=== PATIENT | male | born 1945 | race Caucasian/White ===

== ENCOUNTER 2017-01-20 08:55 | Inpatient (IN) | payer MEDICARE, OTHER ==
[~2017-01-20] VITALS: Ht 177.8 cm; Wt 81.9 kg
[~2017-01-20 08:55] MED LIST: ACET325T33 PO; AMLO-147 PO; ASPI-664 PO; ATOR20TA38 PO; BENA20TA48 PO; CLON-379 PO; DICY10CA60 PO; DOCU-144 PO; FAMO-96 PO; FENT1PAT8 TD; FINA5TAB PO; GABA300C16 PO; GLUC1VIA7 IM; HYDR-3011 PO; HYDR-3498 PO; IBUP-1542 PO; INSU100C SC; ISOS60TA PO; LACT20SO2 PO; LEVEM SC; LEVO125T75 PO; LIPA1CAP17 PO; LORA-408 PO; LUBI24CA7 PO; METF500T4 PO; METH500T8 PO; MULT1TAB59 PO; NIT4 SL; PANT40TA4 PO; POLY17PO PO; RANO500T2 PO; TAMS0.4C2 PO; UDMYL PO; ZOLP5TAB PO
--- NOTE | 2017-01-20 09:14 | RADRPT ---
PROCEDURE: CT Brain without contrast. CLINICAL INDICATION: Code stroke, left facial droop TECHNIQUE: CT of the brain was performed on a multidetector scanner without IV contrast. One or m ore of the following dose reduction techniques were used: automated exposure control, adjustment of the mA and/or kV according to patient size, use of iterative reconstruction technique. CTDI = 42.3 mGy. DLP = 720.23 mGy-cm. COMPARISON: CT, 11/27/2013 FINDINGS: Moderate diffuse cerebral atrophy is present. There is no evidence of intracranial hemorrhage, mass effect or midline shift. No abnormal intra-axial or extra-axial fluid collections are seen. The d ensity of the brain is normal and the polk/white matter differentiation is well preserved. Mild pat melinda diffuse deep white matter microangiopathic ischemic change is seen. The osseous structures and visualized paranasal sinuses are unremarkable. Vascular calcifications are identified. IMPRESSION: 1. Mild to moderate chronic cerebral ischemic changes and atrophy. 2. No evidence of acute intracranial process. A call report was made to Amrik Ferro on 01/20/2017 9:12:47 AM. RPTAT: QQ .Martin Antonio MD, MD Date Time Electronically viewed and signed by .Martin Antonio MD, on 01/20/2017 09:14 .R/
[2017-01-20] MEDS ORDERED: ASPIRIN 300 MG SUPP PR ONE (09:30)
[2017-01-20 09:44] LABS: BASOPHIL # 0.1 10^3/ul (0.0-0.1); BASOPHILS % 0.6 % (0.0-2.0); EOSINOPHILS # 0.1 10^3/ul (0.0-0.5); EOSINOPHILS % 1.3 % (0.0-7.0); HEMATOCRIT 42.9 % (42.0-52.0); LYMPHOCYTES # 1.4 10^3/ul (0.8-2.9); LYMPHOCYTES % 16.2 % (15.0-51.0); MEAN CORPUSCULAR HEMOGLOBIN 30.4 pg (29.0-33.0); MEAN CORPUSCULAR HGB CONC 32.6 g/dl (32.0-37.0); MEAN CORPUSCULAR VOLUME 93.3 fl (82.0-101.0); MEAN PLATELET VOLUME 9.9 fl (7.4-10.4); MONOCYTE # 0.7 10^3/ul (0.3-0.9); NEUTROPHILS % 73.7 % (39.0-77.0); PLATELET COUNT 286 10^3/UL (140-415); RED CELL DISTRIBUTION WIDTH 13.2 % (11.5-14.5); WHITE BLOOD COUNT 8.9 10^3/ul (4.8-10.8)
--- NOTE | 2017-01-20 09:52 | RADRPT ---
PROCEDURE: Chest x-ray CLINICAL INDICATION: Stroke TECHNIQUE: Chest single view COMPARISON: 12/02/2013 FINDINGS: There post thoracotomy changes. Stable mild cardiomegaly and moderate atherosclerotic aortic calcif ication is seen. Pulmonary vessels are normal in caliber. There is low lung volumes and elevated r ight hemidiaphragm. Associated lower lobe atelectasis is seen. The overall appearance is unchanged . Costophrenic angles are sharp. IMPRESSION: 1. Stable cardiomegaly and atherosclerotic aortic calcification. 2. Persistent elevation right hemidiaphragm with bibasilar atelectasis. 3. Status post CABG RPTAT: HH .Escobar Christian MD, Date Time Electronically viewed and signed by .Escobar Christian MD, on 01/20/2017 09:52 .W/
[2017-01-20] MEDS ORDERED: SODIUM CHLORIDE 0.9% 1L BAG IV* STA (09:56)
[2017-01-20 09:57] LABS: INR 0.95; PROTIME 12.7 Sec (12.2-14.2)
[2017-01-20 09:58] LABS: PARTIAL THROMBOPLASTIN TIME 25.5 Sec (25.0-35.0)
[2017-01-20] MEDS ORDERED: SOD CHLORIDE 0.9% 100 ML ONE (09:58)
[2017-01-20] MEDS ORDERED: IODIXANOL LOCM 100 ML BTL ONE (09:58)
[2017-01-20 10:00] LABS: CALCIUM 9.2 mg/dl (8.4-10.2); CREATININE 1.89 mg/dl (0.61-1.24); POTASSIUM 4.4 mmol/L (3.5-5.1)
[2017-01-20 10:12] LABS: TROPONIN-I 0.017 ng/ml (0.00-0.12)
[2017-01-20] MEDS ORDERED: HALOPERIDOL 5 MG INJ IM ONE ×2 (10:30→17:00)
[2017-01-20 10:32] VITALS: TEMP 99.1
[2017-01-20 11:15] LABS: ADD UMIC YES; UR ASCORBIC ACID NEGATIVE (NEGATIVE); UR BACTERIA FEW /HPF (NONE SEEN); UR BILIRUBIN (Dip) NEGATIVE (NEGATIVE); UR BLOOD (Dip) 2+ mg/dL (NEGATIVE); UR CLARITY TURBID (CLEAR); UR COLOR AMBER (YELLOW); UR GLUCOSE (Dip) NEGATIVE (NEGATIVE); UR KETONES (Dip) NEGATIVE (NEGATIVE); UR LEUKOCYTE ESTERASE (Dip) 3+ Leu/ul (NEGATIVE); UR NITRITE (Dip) NEGATIVE (NEGATIVE); UR RBC 64 /HPF (0-5); UR SPECIFIC GRAVITY (Dip) 1.026 (1.003-1.030); UR SQUAMOUS EPITHELIAL CELL FEW /HPF (FEW); UR TOTAL PROTEIN (Dip) 2+ mg/dl (NEGATIVE); UR UROBILINOGEN (Dip) NEGATIVE (NEGATIVE); UR WBC CLUMPS MANY /HPF (NONE SEEN)
--- NOTE | 2017-01-20 11:19 | RADRPT ---
PROCEDURE: CTA head and neck CLINICAL INDICATION: stroke TECHNIQUE: The study was performed utilizing a multidetector CT scanner. Direct thin section emery raquel 0.625 mm axial sections were obtained through the head and neck after the uneventful administrat ion of 100 ml of the Visipaque 320 nonionic intravenous contrast material. Coronal and sagittal as well as maximal intensity projection reformations were obtained. 3-D images were made. The images w ere reviewed on a PACS workstation. The total 36.74 mGy and the 715.19 mGy-cm. One or more of the fo llowing dose reduction techniques were utilized: Automated exposure control, adjustment of the mA a nd/or kV according to patient size, use of iterative reconstruction technique. COMPARISON: No prior studies are available for comparison. FINDINGS: CTA NECK: Aortic arch: The aortic arch is normal in caliber. Atherosclerotic calcification of the aortic arch. Normal appea page of the origin of the great vessels. Common carotid arteries: Marked tortuosity of the proximal common carotid arteries bilaterally. Minimal soft and calcified at herosclerotic plaque at the distal common carotid artery without significant focal narrowing, plaque ulceration or stenosis. Internal carotid arteries: TRINH/ECA: Normal appearance of the internal carotid artery bulb. Minimal circumferential atheromatous soft and calcified plaque at the origin of the external carotid artery and internal carotid artery bulb. The distal internal carotid artery is patent and normal in caliber. No evidence of hemodynamically sig nificant stenosis. External carotid artery and its branches are normal patent and normal in caliber LICA/ECA : Normal appearance of the internal carotid artery bulb. Minimal soft and calcified atheromatous plaqu e at the bifurcation and proximal internal carotid artery bulb without plaque ulceration or signific ant focal narrowing. The distal internal carotid artery is patent and normal in caliber. No eviden ce of hemodynamically significant stenosis. External carotid artery and its branches are normal pat ent and normal in caliber Vertebral arteries: The vertebral arteries are patent and normal in caliber. Dominant right vertebral artery. CTA BRAIN: Circumferential atherosclerotic calcified plaque involving the cavernous and supraclinoid carotid ar teries bilaterally resulting in approximately 50% stenosis bilaterally. The vessels of the anterior posterior circulation are patent and demonstrate normal course and calib er without irregularity, focal stenosis or occlusion. The anterior posterior communicating arteries are intact. The basilar artery is patent and normal in caliber. The posterior communicating arteries are patent and normal in caliber. The vertebral arteries demonstrate dominant right vertebral artery are otherwise normal in course an d caliber. No aneurysm or vascular malformation is identified. The dural venous sinuses , cortical, and intrace rebral veins are patent and normal in caliber. IMPRESSION: 1. Minimal soft and calcified atheromatous plaque at the level of the internal carotid artery bulb and bifurcation bilaterally as well as distal left common carotid artery without hemodynamically sig nificant stenosis or plaque ulceration. 2. Tortuosity of the proximal common carotid arteries bilaterally. 3. Atherosclerotic calcification resulting approximately 50% stenosis of the cavernous carotid and supraclinoid intracranial carotid arteries bilaterally. 4. The remaining intracranial vasculature is unremarkable. 5. Dominant right vertebral artery. Results were discussed with Amrik Finney 01/20/2017 11:15:17 AM . RPTAT:AAJJ Physician Mode Date Time Electronically viewed and signed by Physician Mode on 01/20/2017 11:19 CLAUDIA/
[2017-01-20 11:20] LABS: BARBITURATES Negative (NEGATIVE); BENZODIAZEPINES Negative (NEGATIVE); CANNABINOIDS Negative (NEGATIVE); COCAINE Negative (NEGATIVE); OPIATES Positive (NEGATIVE)
[2017-01-20] MEDS ORDERED: OLANZAPINE (ODT) 5 MG TAB PO STA (11:26)
--- NOTE | 2017-01-20 12:18 | PSY ---
Date/Time of Note Date/Time of Note DATE: 01/20/17 TIME: 12:13 Psychiatric Subjective Eval Consent Pt consented to telemedicine: Yes Subjective Evaluation Patient location: emergency Chief Complaint: Pt BIb RA for pt went altered while walking while holding a wheel chair History of present illness 71 yo anand ojeda multiple medical problems BIB EMS from [facility] due to a AMS on Code Stroke. In ED he told RN after he woke up he has bad thoughts and has thoughts aout stabbing himself. I was not able to evalaute the pt because he did not answer any of my questions including questions about his name and last name, he was just repeating "I dont want to do this". Past psychiatric history unknown; meds reviewed pt is not on any psychotropic meds Medical history Problems Medical Problems: (1) Abdominal pain, acute, generalized Status: Acute (2) Altered level of consciousness Status: Acute (3) Chronic abdominal pain Status: Acute (4) Constipation Status: Acute (5) Pneumonia Status: Acute (6) Suicide attempt Status: Acute (7) TIA (transient ischemic attack) Status: Acute Allergies: Coded Allergies: No Known Allergy (Verified , 10/19/13) Substance Abuse Substance use: No known substance abuse Psychiatric Objective Eval Mental Status Examination: Appearance: Disheveled Eye Contact: Poor Psychomotor Activity: Agitated Behavior: Other Speech: Aphasic AFFECT: Anxious Mood: Anxious Though Process: Perseverative Cognition: Alert Insight: Impared Judgement: Impared Laboratory Results Laboratory Tests Test 01/20/17 09:15 01/20/17 09:23 01/20/17 10:26 White Blood Count 8.910^3/ul Red Blood Count 4.6010^6/ul Hemoglobin 14.0g/dl Hematocrit 42.9% Mean Corpuscular Volume 93.3fl Mean Corpuscular Hemoglobin 30.4pg Mean Corpuscular Hemoglobin Concent 32.6g/dl Red Cell Distribution Width 13.2% Platelet Count 95229^3/UL Mean Platelet Volume 9.9fl Neutrophils % 73.7% Lymphocytes % 16.2% Monocytes % 8.0% Eosinophils % 1.3% Basophils % 0.6% Nucleated Red Blood Cells % 0.0/100WBC Neutrophils # (Manual) 710^3/ul Lymphocytes # 1.410^3/ul Monocytes # 0.710^3/ul Eosinophils # 0.110^3/ul Basophils # 0.110^3/ul Nucleated Red Blood Cells # 0.010^3/ul Prothrombin Time 12.7Sec Prothrombin Time Ratio 1.0 INR International Normalized Ratio 0.95 Activated Partial Thromboplast Time 25.5Sec Sodium Level 141mmol/L Potassium Level 4.4mmol/L Chloride Level 101mmol/L Carbon Dioxide Level 24mmol/L Anion Gap 20 Blood Urea Nitrogen 26mg/dl Creatinine 1.89mg/dl Glucose Level 225mg/dl Hemoglobin A1c 7.8% Calcium Level 9.2mg/dl Troponin I 0.017ng/ml Bedside Glucose 175mg/dL Urine Color TIM Urine Clarity TURBID Urine pH 5.0 Urine Specific [place] 1.026 Urine Ketones NEGATIVEmg/dL Urine Nitrite NEGATIVEmg/dL Urine Bilirubin NEGATIVEmg/dL Urine Urobilinogen NEGATIVEmg/dL Urine Leukocyte Esterase 3+Gilberto/ul Urine Microscopic RBC 64/HPF Urine Microscopic WBC > 182/HPF Urine Squamous Epithelial Cells FEW/HPF Urine Bacteria FEW/HPF Urine Hemoglobin 2+mg/dL Urine Glucose NEGATIVEmg/dL Urine Total Protein 2+mg/dl Urine Opiates Screen Positive Urine Barbiturates Negative Urine Amphetamines Screen Negative Urine Benzodiazepines Screen Negative Urine Cocaine Screen Negative Urine Cannabinoids Negative Assessment and Plan Recommendation/Plan Follow-up/Disposition not able to comlete eval due to pt's lack of cooperation MEGAN WHITE MD Jan 20, 2017 12:18
[2017-01-20] MEDS ORDERED: CEFTRIAXONE 1 GM/50 ML (PMX) 50 ML IVPB ONE (13:00)
[2017-01-20 13:06] LABS: ACETAMINOPHEN < 10.0 ug/ml (10.0-30.0); ETHANOL < 10.0 mg/dl; SALICYLATE < 1.0 mg/dl (5.0-30.0)
[2017-01-20] MEDS ORDERED: ACETAMINOPHEN 325 MG TAB PO PRN ×2 (13:30→19:30)
[2017-01-20] MEDS ORDERED: ONDANSETRON 4 MG INJ IV PRN ×2 (13:30→19:30)
--- NOTE | 2017-01-20 13:46 | ERA ---
ER Documentation Chief Complaint Date/Time DATE: 01/20/17 TIME: 13:37 Chief Complaint Pt BIb RA for pt went altered while walking while holding a wheel chair HPI Patient is a 71-year-old male with hypertension, diabetes, and underlying psychiatric disorder presents with altered mental status. Please note the history and physical exam is limited secondary to the patient's mental status. 20 minutes prior to arrival the patient was at a board and care facility where he fell to the ground suddenly. He was altered immediately and was brought in by ambulance. Sugar was 176. He is not responding to commands or painful stimuli at this time. ROS All systems reviewed and are negative except as per history of present illness. Medications Home Meds Active Scripts Lactulose* (Lactulose*) 20 Gm/30 Ml Solution, 20 GM PO TID for CONSTIPATION, # 10 ML Prov:JENNI STEWART DO 01/16/15 Reported Medications Acetaminophen* (Tylenol*) 325 Mg Tablet, 650 MG PO Q6H Y for PAIN AND OR ELEVATED TEMP, TAB 01/16/15 Glucagon* (Glucagen*) 1 Mg Soln, 1 MG IM PRN Y for DECREASED GLUCOSE, VIAL 01/16/15 Dicyclomine Hcl* (Bentyl*) 10 Mg Capsule, 10 MG PO QID, CAP 01/16/15 Magaldrate/Simethicone* (Mag-Al Plus Suspension*) 30 Ml Oral.susp, 10 ML PO Q6H Y for GASTROINTESTINAL UPSET, ML 01/16/15 Insulin Detemir* (Levemir*) 100 U/Ml Vial, 30 UNIT SC DAILY, VIAL DAILY AT BREAKFAST 01/16/15 Insulin Lispro (Humalog) 100 U/Ml Cartridge, 0 SC SLIDING SCALE ACHS, EA 01/16/15 Aspirin* (Aspirin* EC) 81 Mg Tablet.dr, 81 MG PO DAILY, TAB 01/16/15 Fentanyl Patch* (Fentanyl Patch*) 25 Mcg/Hr Transdermal Patch, 1 PATCH TD Q72H, PATCH 01/16/15 Nitroglycerin* (Nitrostat*) 0.4 Mg Tab.subl, 0.4 MG SL Q5MIN Y for CHEST PAIN, BOTTLE 01/16/15 Zolpidem Tartrate* (Ambien*) 5 Mg Tablet, 5 MG PO HS Y for INSOMNIA, TAB 01/16/15 Hydrocodone Bit-Acetaminophen* ([place]*) 5-325 Mg Tab, 1 TAB PO Q6 Y for SEVERE PAIN LEVEL 7-10, TAB 01/16/15 Methocarbamol* (Methocarbamol*) 500 Mg Tablet, 500 MG PO Q8 Y for MUSCLE SPASMS , TAB 01/16/15 Ibuprofen* (Ibuprofen*) 600 Mg Tablet, 600 MG PO Q6H Y for MODERATE PAIN LEVEL 4 -6, TAB 01/16/15 Hydroxyzine Hcl* (Hydroxyzine Hcl*) 25 Mg Tablet, 25 MG PO QID Y for ITCHING, TAB 01/16/15 Clonidine Hcl* (Clonidine Hcl*) 0.1 Mg Tab, 0.1 MG PO BID Y for ELEVATED BLOOD PRESSURE, TAB NEEDED FOR SBP>160 01/16/15 Amlodipine Besylate* (Amlodipine Besylate*) 10 Mg Tablet, 10 MG PO DAILY, TAB HOLD IF SBP<110 01/16/15 Metformin* (Glucophage*) 500 Mg Tab, 500 MG PO WITH MEALS, TAB 01/16/15 Levothyroxine Sodium* (Levothyroxine Sodium*) 125 Mcg Tablet, 125 MCG PO AC BREAKFAST, TAB 01/16/15 Isosorbide Mononitrate* (Isosorbide Mononitrate*) 60 Mg Tab.er.24h, 60 MG PO DAILY, TAB 01/16/15 Benazepril Hcl* (Benazepril Hcl*) 20 Mg Tablet, 20 MG PO DAILY, TAB HOLD IF SBP<110 01/16/15 Lubiprostone* (Amitiza*) 24 Mcg Capsule, 24 MCG PO BID, CAP 01/16/15 Asajbk-Xcdwgcrn-Evrsrzy* (Zenpep DR* 15,000) 15,000 L-51,000-82,000 Unit Capsule.dr, 1 CAP PO DAILY, CAP 01/16/15 Ranolazine* (Ranexa*) 500 Mg Tab.sr.12h, 500 MG PO Q12, TAB 01/16/15 Tamsulosin Hcl* (Tamsulosin Hcl*) 0.4 Mg Cap.er.24h, 0.4 MG PO QHS 10/19/13 Pantoprazole (Protonix) 40 Mg Tabec, 40 MG PO DAILY 10/19/13 Atorvastatin Calcium* (Atorvastatin Calcium*) 20 Mg Tablet, 20 MG PO DAILY 10/15/12 Famotidine* (Pepcid*) 20 Mg Tablet, 20 MG PO BID 10/15/12 Lorazepam (Ativan) 1 Mg Tablet, 1 MG PO BID Y for ANXIETY 03/27/12 Polyethylene Glycol (Miralax) 17 Gm/Pkt Liq, 17 GM PO DAILY 03/27/12 Docusate Sodium* (Colace*) 100 Mg Capsule, 100 MG PO DAILY 03/27/12 Gabapentin* (Gabapentin*) 300 Mg Capsule, 300 MG PO DAILY 03/27/12 Multivitamins* (Multivitamins*) 1 Tab Tablet, 1 TAB PO DAILY 06/03/11 Finasteride* (Proscar*) 5 Mg Tablet, 5 MG PO DAILY, MG 06/03/11 Allergies Allergies: Coded Allergies: No Known Allergy (Verified , 10/19/13) PMhx/Soc History of Surgery: Yes (s/p ERCP, CABG, ABD surgeries) Anesthesia Reaction: No Hx Neurological Disorder: No Hx Respiratory Disorders: No Hx Cardiac Disorders: Yes (CABG) Hx Psychiatric Problems: No (DEPRESSION) Hx Miscellaneous Medical Probl: Yes (CAD DM neuropathy) Hx Alcohol Use: No Hx Substance Use: No Hx Tobacco Use: No Smoking Status: Unknown if ever smoked FmHx Unable to obtain Physical Exam Vitals Vital Signs Date Time Temp Pulse Resp B/P Pulse Ox O2 Delivery O2 Flow Rate FiO2 01/20/17 11:40 72 25 151/86 Room Air 01/20/17 11:30 99.1 74 18 156/78 98 01/20/17 10:32 99.1 82 20 139/60 96 Nasal Cannula 2.0 01/20/17 09:10 2 01/20/17 09:00 99.3 82 21 100/48 96 Physical Exam Const: Diffusely altered and not responding to commands Head: Atraumatic Eyes: Normal Conjunctiva ENT: Normal External Ears, Nose and Mouth. Neck: Full range of motion..~ No meningismus. Resp: Clear to auscultation bilaterally Cardio: Regular rate and rhythm, no murmurs Abd: Soft, non tender, non distended. Normal bowel sounds Skin: Pale skin Back: No midline or flank tenderness Ext: No cyanosis, or edema Neur: Not responding to commands or painful stimuli, left-sided facial droop Result Diagram: 01/20/1791401/20/17914 Results 24 hrs Laboratory Tests Test 01/20/17 09:15 01/20/17 09:23 01/20/17 10:26 White Blood Count 8.910^3/ul Red Blood Count 4.6010^6/ul Hemoglobin 14.0g/dl Hematocrit 42.9% Mean Corpuscular Volume 93.3fl Mean Corpuscular Hemoglobin 30.4pg Mean Corpuscular Hemoglobin Concent 32.6g/dl Red Cell Distribution Width 13.2% Platelet Count 96686^3/UL Mean Platelet Volume 9.9fl Neutrophils % 73.7% Lymphocytes % 16.2% Monocytes % 8.0% Eosinophils % 1.3% Basophils % 0.6% Nucleated Red Blood Cells % 0.0/100WBC Neutrophils # (Manual) 710^3/ul Lymphocytes # 1.410^3/ul Monocytes # 0.710^3/ul Eosinophils # 0.110^3/ul Basophils # 0.110^3/ul Nucleated Red Blood Cells # 0.010^3/ul Prothrombin Time 12.7Sec Prothrombin Time Ratio 1.0 INR International Normalized Ratio 0.95 Activated Partial Thromboplast Time 25.5Sec Sodium Level 141mmol/L Potassium Level 4.4mmol/L Chloride Level 101mmol/L Carbon Dioxide Level 24mmol/L Anion Gap 20 Blood Urea Nitrogen 26mg/dl Creatinine 1.89mg/dl Glucose Level 225mg/dl Hemoglobin A1c 7.8% Calcium Level 9.2mg/dl Troponin I 0.017ng/ml Salicylates Level < 1.0mg/dl Acetaminophen Level < 10.0ug/ml Ethyl Alcohol Level < 10.0mg/dl Bedside Glucose 175mg/dL Urine Color TIM Urine Clarity TURBID Urine pH 5.0 Urine Specific [place] 1.026 Urine Ketones NEGATIVEmg/dL Urine Nitrite NEGATIVEmg/dL Urine Bilirubin NEGATIVEmg/dL Urine Urobilinogen NEGATIVEmg/dL Urine Leukocyte Esterase 3+[place]berto/ul Urine Microscopic RBC 64/HPF Urine Microscopic WBC > 182/HPF Urine Squamous Epithelial Cells FEW/HPF Urine Bacteria FEW/HPF Urine Hemoglobin 2+mg/dL Urine Glucose NEGATIVEmg/dL Urine Total Protein 2+mg/dl Urine Opiates Screen Positive Urine Barbiturates Negative Urine Amphetamines Screen Negative Urine Benzodiazepines Screen Negative Urine Cocaine Screen Negative Urine Cannabinoids Negative Current Medications Medications (Trade) Dose Ordered Sig/Birgit Route PRN Reason Start Time Stop Time Status Last Admin Dose Admin Aspirin (Aspirin) [address] 01/20/17 09:30 01/20/17 09:31 DC 01/20/17 10:18 Sodium Chloride (NS) 2,480 ml BOLUS OVER 2 HOURS STAT IV* 01/20/17 09:56 01/20/17 09:58 DC 01/20/17 10:15 IV Flush 10 ml 10 ml STK-MED ONCE .ROUTE 01/20/17 09:58 01/20/17 09:59 DC 01/20/17 09:58 Sodium Chloride (NS) 100 ml @ ud STK-MED ONCE .ROUTE 01/20/17 09:58 01/20/17 09:59 DC 01/20/17 09:58 Iodixanol (Visipaque Locm) 100 ml STK-MED ONCE .ROUTE 01/20/17 09:58 01/20/17 09:59 DC 01/20/17 09:58 Haloperidol (Haldol) 5 mg ONCE ONCE IM 01/20/17 10:30 01/20/17 10:31 DC 01/20/17 10:18 Olanzapine 10 mg 10 mg ONCE STAT PO 01/20/17 11:26 01/20/17 11:28 DC Ceftriaxone Sodium (Rocephin) 50 ml @ 100 mls/hr ONCE ONCE IVPB 01/20/17 13:00 01/20/17 13:29 DC Ondansetron HCl (Zofran Inj) 4 mg ER BRIDGE PRN IV NAUSEA AND/OR VOMITING 01/20/17 13:30 01/21/17 13:29 Acetaminophen (Tylenol Tab) 650 mg ER BRIDGE PRN PO MILD PAIN/FEVER 01/20/17 13:30 01/21/17 13:29 Procedures/MDM EKG read by me: Rate/Rhythm: First-degree AV block with a regular rate Intervals: Prolonged CT interval Impression: First-degree AV block CT brain shows no intracranial hemorrhage or mass per radiology. CT of the brain and neck showed no acute occlusion. Patient is a 71-year-old male who presented with acute altered mental status. Initially I was concerned about intra-cranial hemorrhage and so a code stroke was called immediately. There was no hemorrhage and therefore the concern for ischemic stroke arose. The patient had an arrival at 8:52 AM and a code stroke was called a 8:52 AM. The patient went directly to CT at 8:53 AM. Tele- neurology was called 8:57 AM. I received a call from Dr. Wayne from tele- neurology at 9:[address] Wayne performed his evaluation of the patient by 9: 34 AM and was concerned that the NIH stroke scale would be so high that giving TPA the wrist without with benefits. He said to hold off on TPA but to get a stat CTA of the brain and neck which I ordered. I received a call from radiology at 11:17 AM and the CTA was negative for clot therefore the decision to hold TPA was made. The risks of giving TPA would outweigh the benefits in this case. The patient also started moving on his own and responding to questions and therefore I feel this may be more of a TIA or other etiology not related to stroke. The patient was found to have an acute cystitis which could cause his altered mental status as well and therefore he was given ceftriaxone and urine culture and blood cultures were obtained. The patient will be admitted to the care of the panel team as previously he [place] [address] Velazquez but it is 3 years later and they are not his primary doctor. While the patient was in the emergency department he attempted to strangle himself and turned purple. The nurse was able to intervene and stop him. The patient was given Haldol and Zyprexa. A one-to-one sitter was applied. Restraints were placed. Dr. De Souza from tele-psychiatry was consulted but the patient is refusing to speak with her at this time. Critical Care: Time: 45 minutes excluding all billable procedures. Treatments/Evaluations: Close monitoring and treatment of unstable vital signs, cardiorespiratory, and neurologic status, while maintaining tight balance of fluid, respiratory, and cardiac interventions. Departure Diagnosis: Primary Impression: Suicide attempt Additional Impressions: Altered level of consciousness TIA (transient ischemic attack) Qualified Code: G45.9 - Transient cerebral ischemia, unspecified type Cystitis Condition: IVETH Ladd MD Jan 20, 2017 13:46
[2017-01-20 14:15] LABS: OPIATES Positive (NEGATIVE)
[2017-01-20 14:19] LABS: BARBITURATES Negative (NEGATIVE); BENZODIAZEPINES Negative (NEGATIVE); CANNABINOIDS Negative (NEGATIVE); COCAINE Negative (NEGATIVE)
[2017-01-20] MEDS ORDERED: MAGN400T28 PO (15:24)
[2017-01-20] MEDS ORDERED: MELA3TAB29 PO (15:25)
[2017-01-20] MEDS ORDERED: PSYL3.4P5 PO (15:26)
[2017-01-20] MEDS ORDERED: MAG-19 PO (15:27)
[2017-01-20] MEDS ORDERED: HYDR-902 PO (15:30)
[2017-01-20] MEDS ORDERED: CLOP75TA27 PO (15:31)
[2017-01-20] MEDS ORDERED: MYL80 PO (15:34)
[2017-01-20] MEDS ORDERED: SUCR1TAB56 PO (15:36)
[2017-01-20] MEDS ORDERED: CRAN425C PO (15:37)
[2017-01-20] MEDS ORDERED: DIPY25TA PO (15:37)
[2017-01-20] MEDS ORDERED: BISA10SU75 PR (15:38)
[2017-01-20] MEDS ORDERED: IMO2 PO (15:39)
[2017-01-20] MEDS ORDERED: SITA100T8 PO (15:40)
[2017-01-20] MEDS ORDERED: INSU100I27 SQ ×2 (15:41)
[2017-01-20] MEDS ORDERED: ATOR10TA65 PO (15:42)
[2017-01-20] MEDS ORDERED: METO-448 PO (15:43)
[2017-01-20] MEDS ORDERED: TRAZ100T15 PO (15:44)
[2017-01-20] MEDS ORDERED: CRAN3875 PO (15:44)
[2017-01-20] MEDS ORDERED: LACTINEX PO (15:46)
[2017-01-20] MEDS ORDERED: BUSP5TAB20 PO (15:47)
[2017-01-20] MEDS ORDERED: CALC-1 PO (15:48)
[2017-01-20] MEDS ORDERED: CHOL100062 PO (15:49)
[2017-01-20] MEDS ORDERED: [UNRECOGNIZED DRUG - OTHER] PO ×2 (15:52→15:53)
[2017-01-20] MEDS ORDERED: PANCREAZE PO (15:59)
--- NOTE | 2017-01-20 16:39 | PSY ---
Date/Time of Note Date/Time of Note DATE: 01/20/17 TIME: 16:26 Psychiatric Subjective Eval Consent Pt consented to telemedicine: Yes Subjective Evaluation Patient location: emergency Chief Complaint: Pt BIb RA for pt went altered while walking while holding a wheel chair Reason for consult: saying he wants to kill himself History of present illness Pt is a 71 year old male who presented to the ER for altered level of consciousness. Code stroke was called and ruled out. In meantime, patient was found in room with cord around his neck and blue in the face. He was moved to an area with a sitter and a psych consult was requested. He initially refused. He was observed to be hitting his head and his stomach. He reported that he wanted to . Pt agreed to talk with me but remains agitated. He is in soft restraints but is moving, attempting to hit his stomach. He states he just wants to be "put to sleep." Wants to . Reports he has not been sleeping. When attempt to ask about hallucinations, patient wimpers and then hits self. He knows that he is in a hospital but cannot tell me year. Past psychiatric history Unclear. Per report, he has a history of psychiatric hospitalizations and was on a 5150 previously. No documentation of psychiatric medications. Hospitalization: yes Family History Unknown Medical history Problems Medical Problems: (1) Abdominal pain, acute, generalized Status: Acute (2) Altered level of consciousness Status: Acute (3) Chronic abdominal pain Status: Acute (4) Constipation Status: Acute (5) Cystitis Status: Acute (6) Pneumonia Status: Acute (7) Suicide attempt Status: Acute (8) TIA (transient ischemic attack) Status: Acute Allergies: Coded Allergies: No Known Allergy (Verified , 01/20/17) Substance Abuse Substance use: No known substance abuse Social History Level of education: Unknown DPA/Conservatorship: No Occupation/Fci: Lives in a SNF Psychiatric Objective Eval Physical Examination: Sleep: Insomnia Mental Status Examination: Appearance: Bizarre Eye Contact: Fair Psychomotor Activity: Agitated Behavior: Agitated Speech: Soft, Disorganized AFFECT: Libile Mood: Anxious Though Process: Loose Thought Content: Hallucinations Suicidal: Yes Homicidal: No On 72 hour hold: No Orientation: x2 Cognition: Alert Insight: Impared Judgement: Impared Laboratory Results Laboratory Tests Test 01/20/17 09:15 01/20/17 09:23 01/20/17 10:26 White Blood Count 8.910^3/ul Red Blood Count 4.6010^6/ul Hemoglobin 14.0g/dl Hematocrit 42.9% Mean Corpuscular Volume 93.3fl Mean Corpuscular Hemoglobin 30.4pg Mean Corpuscular Hemoglobin Concent 32.6g/dl Red Cell Distribution Width 13.2% Platelet Count 80828^3/UL Mean Platelet Volume 9.9fl Neutrophils % 73.7% Lymphocytes % 16.2% Monocytes % 8.0% Eosinophils % 1.3% Basophils % 0.6% Nucleated Red Blood Cells % 0.0/100WBC Neutrophils # (Manual) 710^3/ul Lymphocytes # 1.410^3/ul Monocytes # 0.710^3/ul Eosinophils # 0.110^3/ul Basophils # 0.110^3/ul Nucleated Red Blood Cells # 0.010^3/ul Prothrombin Time 12.7Sec Prothrombin Time Ratio 1.0 INR International Normalized Ratio 0.95 Activated Partial Thromboplast Time 25.5Sec Sodium Level 141mmol/L Potassium Level 4.4mmol/L Chloride Level 101mmol/L Carbon Dioxide Level 24mmol/L Anion Gap 20 Blood Urea Nitrogen 26mg/dl Creatinine 1.89mg/dl Glucose Level 225mg/dl Hemoglobin A1c 7.8% Calcium Level 9.2mg/dl Troponin I 0.017ng/ml Salicylates Level < 1.0mg/dl Urine Opiates Screen Positive Positive Acetaminophen Level < 10.0ug/ml Urine Barbiturates Negative Negative Urine Amphetamines Screen Negative Negative Urine Benzodiazepines Screen Negative Negative Urine Cocaine Screen Negative Negative Urine Cannabinoids Negative Negative Ethyl Alcohol Level < 10.0mg/dl Bedside Glucose 175mg/dL Urine Color TIM Urine Clarity TURBID Urine pH 5.0 Urine Specific [place] 1.026 Urine Ketones NEGATIVEmg/dL Urine Nitrite NEGATIVEmg/dL Urine Bilirubin NEGATIVEmg/dL Urine Urobilinogen NEGATIVEmg/dL Urine Leukocyte Esterase 3+[place]/ul Urine Microscopic RBC 64/HPF Urine Microscopic WBC > 182/HPF Urine Squamous Epithelial Cells FEW/HPF Urine Bacteria FEW/HPF Urine Hemoglobin 2+mg/dL Urine Glucose NEGATIVEmg/dL Urine Total Protein 2+mg/dl Assessment and Plan Assessment/Diagnosis [place] I: 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 Suspect delirium [place] III: Multiple medical issues - DM, Constipation, UTI. Recommendation/Plan Medication Management Consider starting zyprexa 2.5mg bid to target agitation. Psychotherapy N/A Pt. Caregiver/Family Education N/A Follow-up/Disposition Pt is being admitted to medical floor. Recommend 1:1 sitter as patient attempted to strangle self with cord while in ED. Remains agitated and states does not want to live. JIM BOURNE Jan 20, 2017 16:38
[2017-01-20] MEDS ORDERED: ALPRAZOLAM 0.25 MG TAB PO ONE (17:00)
[2017-01-20] MEDS: OLANZAPINE 2.5 MG TAB PO SCH (19:06)
--- NOTE | 2017-01-20 19:11 | HP ---
Date/Time of Note Date/Time of Note DATE: 01/20/17 TIME: 19:02 Assessment/Plan VTE Prophylaxis VTE Prophylaxis Intervention: heparin Assessment/Plan Chief Complaint/Hosp Course Assessment and plan: 71-year-old male with UTI and renal insufficiency, also with psychiatric disorder, prior history of hypertension, depression, diabetes 1. UTI: Admit patient give him IV fluids, IV antibiotics follow follow final culture results, Tylenol as needed pain fevers, broad-spectrum antibiotic 2. Psychiatric disorder: Per requisition telemetry psychiatrist, will start Zyprexa 2.5 mg p.o. twice daily, monitor for signs of agitation 3. Hypertension: Hydralazine as needed 4. Diabetes: Sliding scale insulin, check A1c Problems: HPI/ROS Admit Date/Time Admit Date/Time Hx of Present Illness 71-year-old male past medical history of hypertension, CAD, depression, diabetes , and underlying psychiatric disorder presents with altered mental status. Please note the history and physical exam is limited secondary to the patient's mental status, and full review of systems cannot be obtained at this time.'s of the information is obtained from the ER documentation. Apparently per records 20 minutes prior to arrival the patient was at a [facility] and [facility] where he fell to the ground suddenly. He was altered immediately and was brought in by ambulance. Sugar was 176. He is not responding to commands or painful stimuli at this time. Code stroke was initiated in the ER after patient had syncopal event and had altered mental status. However TPA was not recommended to be given by telemetry neurologist. Later today in the ER patient was experiencing severe agitation, was found to have the Otoscope wire wrapped around neck and face cyanotic. This was removed, and telemetry psychiatrist was also initiated, patient initially refused but then agreed to a second evaluation by the tele-psychiatrist who recommended Zyprexa after diagnosing him with psychotic disorder versus delirium, likely delirium. Patient was also found with acute renal insufficiency and UTI today. PMH/Family/Social Past Surgical History Past Surgical Hx: other (s/p ERCP, CABG, ABD surgeries) Family History Significant Family History: other Social History Alcohol Use: none Smoking Status: Unknown if ever smoked Drug Use: other (Unknown) Exam/Review of Systems Vital Signs Vitals Vital Signs Date Time Temp Pulse Resp B/P Pulse Ox O2 Delivery O2 Flow Rate FiO2 01/20/17 18:05 61 22 98 Room Air 01/20/17 11:40 151/86 01/20/17 11:30 99.1 01/20/17 10:32 2.0 Exam Exam Gen: Diffusely altered and not responding to commands Head: Atraumatic Eyes: Normal Conjunctiva ENT: Normal External Ears, Nose and Mouth. Neck: Full range of motion..~ No meningismus. Resp: Clear to auscultation bilaterally Cardio: Regular rate and rhythm, no murmurs Abd: Soft, non tender, non distended. Normal bowel sounds Skin: Pale skin Back: No midline or flank tenderness Ext: No cyanosis, or edema Neur: Not responding to commands or painful stimuli, less left-sided facial droop Labs Result Diagram: 01/20/1715 01/20/17 0915 JENN KAPOOR Jan 20, 2017 19:11
[2017-01-20] MEDS ORDERED: DOCUSATE SODIUM 100 MG CAP PO PRN (19:30)
[2017-01-20] MEDS ORDERED: MAGNESIUM HYDROXIDE 30ML CUP PO PRN (19:30)
[2017-01-20] MEDS ORDERED: NITROGLYCERIN (SL) 0.4 MG TAB SL PRN (19:30)
[2017-01-20] MEDS ORDERED: NACL 0.9% 3 ML SYG IV SCH (19:30)
[2017-01-20] MEDS: DICYCLOMINE 10 MG CAP PO SCH (19:30)
[2017-01-20] MEDS ORDERED: HYDROCODONE/APAP (5/325) TAB PO PRN (19:30)
[2017-01-20] MEDS ORDERED: ALBUTEROL/IPRATROPIUM (NEB) 3 ML AMP HHN PRN (19:30)
[2017-01-20] MEDS: SUCRALFATE 1 GM TAB PO SCH (19:30)
[2017-01-20] MEDS ORDERED: AL HYDROX/MG HYDROX/SIMETH 30 ML CUP PO PRN (19:30)
[2017-01-20] MEDS ORDERED: NA PHOSPHATE/BIPHOS 133 ML ENEMA PR PRN (19:30)
[2017-01-20] MEDS ORDERED: hydrALAzine 20 MG INJ IV PRN (19:30)
[2017-01-20] MEDS ORDERED: BISACODYL 10 MG SUPP PR PRN (19:30)
[2017-01-20] MEDS ORDERED: morphine 2 MG INJ IV PRN (19:30)
[2017-01-20] MEDS: SOD CHLORIDE 0.45% 1,000 ML IV SCH (19:57)
[2017-01-20] MEDS ORDERED: GLUCOSE GEL 15 GRAM TUBE PO PRN ×2 (20:00)
[2017-01-20] MEDS ORDERED: GLUCAGON 1 MG INJ IM PRN (20:00)
[2017-01-20] MEDS ORDERED: DEXTROSE 50% 50 ML SYRINGE IV PRN ×2 (20:00)
[2017-01-20] MEDS ORDERED: GLUCOSE GEL 15 GRAM TUBE BUCCAL PRN (20:00)
[2017-01-20] MEDS ORDERED: ATORVASTATIN 10 MG TAB PO SCH (21:00)
[2017-01-20] MEDS ORDERED: traZODone 100 MG TAB PO SCH (21:00)
[2017-01-20] MEDS ORDERED: TAMSULOSIN (SR) 0.4 MG CAP PO SCH (21:00)
[2017-01-20 22:00] VITALS: BP 175/75; PULSE 85; RESP 20; Ht 177.8 cm; Wt 81.9 kg
[2017-01-20] MEDS: FAMOTIDINE 20 MG TAB PO SCH (22:18)
[2017-01-20 22:21] VITALS: PULSE 79
[2017-01-20] MEDS: METOPROLOL 25 MG TAB PO SCH (22:26)
[2017-01-20] MEDS: HEPARIN 5,000 UNIT/0.5 ML VIAL SC SCH (22:28)
[2017-01-20] MEDS: MAGNESIUM OXIDE 400 MG TAB PO SCH (22:30)
[2017-01-20] MEDS: LUBIPROSTONE 24 MCG CAP PO SCH (23:28)
[2017-01-20] MEDS: BUSPIRONE 5 MG TAB PO SCH (23:28)
[2017-01-20] MEDS: DIPYRIDAMOLE 25 MG TAB PO SCH (23:58)
[2017-01-21] VITALS (13 sets, daily range): BP systolic 138–182; BP diastolic 63–84; PULSE 54–93; RESP 16–20
[2017-01-21] MEDS: DICYCLOMINE 10 MG CAP PO SCH ×3 (01:58→12:49)
[2017-01-21] MEDS: LORAZEPAM 2 MG INJ IV PRN ×2 (03:36→20:10)
[2017-01-21] MEDS: SUCRALFATE 1 GM TAB PO SCH ×2 (03:36→10:32)
[2017-01-21 07:45] LABS: CHOL/HDL RATIO 3.5 RATIO
[2017-01-21 08:18] LABS: THYROID STIMULATING HORMONE 0.425 MIU/L (0.465-4.680)
[2017-01-21] MEDS: OLANZAPINE 2.5 MG TAB PO SCH ×2 (08:40→19:58)
[2017-01-21] MEDS: FAMOTIDINE 20 MG TAB PO SCH (08:40)
[2017-01-21] MEDS: METOPROLOL 25 MG TAB PO SCH (08:40)
[2017-01-21] MEDS: DIPYRIDAMOLE 25 MG TAB PO SCH ×2 (08:40→12:49)
[2017-01-21] MEDS: MAGNESIUM OXIDE 400 MG TAB PO SCH (08:40)
[2017-01-21] MEDS: BUSPIRONE 5 MG TAB PO SCH (08:41)
[2017-01-21] MEDS: SOD CHLORIDE 0.45% 1,000 ML IV SCH (08:41)
[2017-01-21] MEDS: LUBIPROSTONE 24 MCG CAP PO SCH (08:41)
[2017-01-21] MEDS: HEPARIN 5,000 UNIT/0.5 ML VIAL SC SCH (08:48)
[2017-01-21] MEDS ORDERED: CHOLECALCIFEROL 1,000 UNIT TAB PO SCH (09:00)
[2017-01-21] MEDS ORDERED: DOCUSATE SODIUM 100 MG CAP PO SCH (09:00)
[2017-01-21] MEDS ORDERED: PANTOPRAZOLE (EC) 40 MG TAB PO SCH (09:00)
[2017-01-21] MEDS ORDERED: CLOPIDOGREL 75 MG TAB PO SCH (09:00)
[2017-01-21] MEDS ORDERED: INSULIN DETEMIR [LEVEMIR] 3ML CART SC SCH ×2 (09:00→21:00)
[2017-01-21] MEDS ORDERED: ISOSORBIDE MONONITRATE(SR)60 MG TAB PO SCH (09:00)
[2017-01-21 09:29] LABS: BASOPHIL # 0.1 10^3/ul (0.0-0.1); BASOPHILS % 0.6 % (0.0-2.0); EOSINOPHILS # 0.3 10^3/ul (0.0-0.5); EOSINOPHILS % 3.4 % (0.0-7.0); HEMATOCRIT 42.2 % (42.0-52.0); HEMOGLOBIN 13.9 g/dl (14.0-18.0); LYMPHOCYTES # 1.7 10^3/ul (0.8-2.9); LYMPHOCYTES % 21.9 % (15.0-51.0); MEAN CORPUSCULAR HEMOGLOBIN 30.8 pg (29.0-33.0); MEAN CORPUSCULAR HGB CONC 32.9 g/dl (32.0-37.0); MEAN CORPUSCULAR VOLUME 93.6 fl (82.0-101.0); MEAN PLATELET VOLUME 10.1 fl (7.4-10.4); MONOCYTE # 0.8 10^3/ul (0.3-0.9); NEUTROPHILS % 63.8 % (39.0-77.0); PLATELET COUNT 266 10^3/UL (140-415); RED BLOOD COUNT 4.51 10^6/ul (4.70-6.10); RED CELL DISTRIBUTION WIDTH 12.9 % (11.5-14.5); WHITE BLOOD COUNT 7.9 10^3/ul (4.8-10.8)
[2017-01-21 09:56] LABS: CALCIUM 8.5 mg/dl (8.4-10.2); CREATININE 1.1 mg/dl (0.61-1.24); MAGNESIUM 2.2 mg/dl (1.7-2.5); PHOSPHORUS 3.5 mg/dl (2.5-4.9); POTASSIUM 3.9 mmol/L (3.5-5.1)
--- NOTE | 2017-01-21 10:07 | PN ---
Date/Time of Note Date/Time of Note DATE: 01/21/17 TIME: 10:03 Assessment/Plan VTE Prophylaxis VTE Prophylaxis Intervention: heparin Lines/Catheters IV Catheter Type (from Nrs): Peripheral IV Urinary Cath still in place: Yes Reason Cath still needed: urinary retention Assessment/Plan Chief Complaint/Hosp Course Assessment and plan: 71-year-old male with UTI and renal insufficiency, also with psychiatric disorder, prior history of hypertension, depression, diabetes. 1. UTI: WBC improved this morning, no fevers. -Continue IV antibiotics, follow up final culture results, Tylenol as needed pain fevers, 2. SHLOMO: Improved and resolved now, continue IV fluids 3. Psychiatric disorder: Diagnosed with psychotic disorder versus delirium, improved now -Continue Zyprexa 2.5 mg p.o. twice daily, Ativan as needed, monitor for signs of agitation 4. Hypertension: Hydralazine as needed 5. Diabetes: Sliding scale insulin, Levemir Dispo: Patient is now medically cleared to be transferred to psychiatric facility or under PET team care today Problems: Subjective 24 Hr Interval Summary Free Text/Dictation No acute events overnight, less agitated. Exam/Review of Systems Vital Signs Vitals Vital Signs Date Time Temp Pulse Resp B/P Pulse Ox O2 Delivery O2 Flow Rate FiO2 01/21/17 09:22 93 19 158/69 99 Room Air 01/21/17 07:53 97.8 01/20/17 10:32 2.0 Intake and Output 01/20/17 01/20/17 01/21/17 15:00 23:00 07:00 Intake Total 925 ml Output Total 780 ml Balance 145 ml Exam Gen: Less altered this morning Head: Atraumatic Eyes: Normal Conjunctiva ENT: Normal External Ears, Nose and Mouth. Neck: Full range of motion..~ No meningismus. Resp: Clear to auscultation bilaterally Cardio: Regular rate and rhythm, no murmurs Abd: Soft, non tender, non distended. Normal bowel sounds Back: No midline or flank tenderness Ext: No cyanosis, or edema Neur: No focal deficits Results Result Diagram: 01/21/17 0637 01/21/17 0637 Results 24 hrs Laboratory Tests Test 01/20/17 10:26 01/21/17 06:37 01/21/17 08:44 Urine Color TIM Urine Clarity TURBID A Urine pH 5.0 Urine Specific [place] 1.026 Urine Ketones NEGATIVE Urine Nitrite NEGATIVE Urine Bilirubin NEGATIVE Urine Urobilinogen NEGATIVE Urine Leukocyte Esterase 3+ H Urine Microscopic RBC 64 H Urine Microscopic WBC > 182 H Urine Squamous Epithelial Cells FEW Urine Bacteria FEW A Urine Hemoglobin 2+ H Urine Glucose NEGATIVE Urine Total Protein 2+ H Urine Opiates Screen Positive Urine Barbiturates Negative Urine Amphetamines Screen Negative Urine Benzodiazepines Screen Negative Urine Cocaine Screen Negative Urine Cannabinoids Negative White Blood Count 7.9 Red Blood Count 4.51 L Hemoglobin 13.9 L Hematocrit 42.2 Mean Corpuscular Volume 93.6 Mean Corpuscular Hemoglobin 30.8 Mean Corpuscular Hemoglobin Concent 32.9 Red Cell Distribution Width 12.9 Platelet Count 266 Mean Platelet Volume 10.1 Neutrophils % 63.8 Lymphocytes % 21.9 Monocytes % 10.0 Eosinophils % 3.4 Basophils % 0.6 Nucleated Red Blood Cells % 0.0 Neutrophils # (Manual) 5 Lymphocytes # 1.7 Monocytes # 0.8 Eosinophils # 0.3 Basophils # 0.1 Nucleated Red Blood Cells # 0.0 Sodium Level 144 Potassium Level 3.9 Chloride Level 106 Carbon Dioxide Level 25 Anion Gap 17 H Blood Urea Nitrogen 22 H Creatinine 1.10 Glucose Level 90 # Hemoglobin A1c 7.4 H Calcium Level 8.5 Phosphorus Level 3.5 Magnesium Level 2.2 Triglycerides Level 160 H Cholesterol Level 91 L LDL Cholesterol, Calculated 33 HDL Cholesterol 26 L Cholesterol/HDL Ratio 3.5 Thyroid Stimulating Hormone (TSH) 0.425 L Bedside Glucose 104 Medications Medications Current Medications Olanzapine (Zyprexa) 2.5 mg BID PO Last administered on 01/21/17 08:40; Admin Dose 2.5 MG; Start 01/20/17 at 19:06 Ondansetron HCl (Zofran Inj) 4 mg Q6H PRN IV NAUSEA AND/OR VOMITING; Start at 19:30 Acetaminophen (Tylenol Tab) 650 mg Q6H PRN PO PAIN LEVEL 1-3 OR FEVER; Start at 19:30 Acetaminophen/ Hydrocodone Bitart ([place] (5/325)) 1 tab Q6H PRN PO MODERATE PAIN LEVEL 4-6; Start 01/20/17 at 19:30 Morphine Sulfate (morphine) 2 mg Q4H PRN IV SEVERE PAIN LEVEL 7-10 Last administered on 8/18/17at 22:44; Admin Dose 2 MG; Start 01/20/17 at 19:30 Docusate Sodium (Colace) 100 mg Q12H PRN PO CONSTIPATION; Start 01/20/17 at 19: 30 Magnesium Hydroxide (Milk Of Mag) 30 ml DAILY PRN PO CONSTIPATION; Start at 19:30 Sodium Biphosphate/ Sodium Phosphate (Fleet Enema) 133 ml DAILY PRN ID CONSTIPATION; Start 01/20/17 at 19:30 Heparin Sodium (Porcine) 5000 unit 5,000 unit Q12 SC Last administered on 08:48; Admin Dose 5,000 UNIT; Start 01/20/17 at 21:00 Sodium Chloride (1/2 NS) 1,000 ml @ 75 mls/hr [id number] IV Last administered on 01/21/17 08:41; Admin Dose 75 MLS/HR; Start 01/20/17 at 19:15 Lorazepam (Ativan) 0.5 mg Q6H PRN IV ANXIETY Last administered on 01/21/17 03: 36; Admin Dose 0.5 MG; Start 01/20/17 at 19:30 Hydralazine HCl (Apresoline) 10 mg Q6H PRN IV ELEVATED BLOOD PRESSURE; Start at 19:30 Nitroglycerin (Nitroglycerin (Sl Tab) 0.4 Mg) 1 tab Q5M PRN SL ANGINA; Start at 19:30 Atorvastatin Calcium (Lipitor) 5 mg QHS PO Last administered on 01/20/17 22:18 ; Admin Dose 5 MG; Start 01/20/17 at 21:00 Bisacodyl (Dulcolax Supp) 10 mg Q24H PRN ID NEEDED; Start 01/20/17 at 19:30 Buspirone HCl (Buspar) 5 mg BID PO Last administered on 01/21/17 08:41; Admin Dose 5 MG; Start 01/20/17 at 21:00 Cholecalciferol (Vitamin D) 1,000 unit DAILY PO Last administered on 01/21/17 08:40; Admin Dose 1,000 UNIT; Start 01/21/17 at 09:00 Clonidine (Catapres) 0.1 mg BID PRN PO ELEVATED BLOOD PRESSURE; Start 01/20/17 at 19:30 Clopidogrel Bisulfate (plaVIX) 75 mg DAILY PO Last administered on 01/21/17 08 :41; Admin Dose 75 MG; Start 01/21/17 at 09:00 Dicyclomine HCl (Bentyl) 10 mg Q6H PO Last administered on 01/21/17 08:40; Admin Dose 10 MG; Start 01/20/17 at 19:30 Dipyridamole (Persantine) 25 mg TID PO Last administered on 01/21/17 08:40; Admin Dose 25 MG; Start 01/20/17 at 21:00 Docusate Sodium (Colace) 100 mg DAILY PO Last administered on 01/21/17 08:40; Admin Dose 100 MG; Start 01/21/17 at 09:00 Famotidine (Pepcid) 20 mg BID PO Last administered on 01/21/17 08:40; Admin Dose 20 MG; Start 01/20/17 at 21:00 Insulin Detemir (Levemir) 20 unit DAILY SC ; Start 01/21/17 at 09:00 Isosorbide Mononitrate (Imdur) 60 mg DAILY PO Last administered on 01/21/17 08 :39; Admin Dose 60 MG; Start 01/21/17 at 09:00 Lubiprostone (Amitiza) 24 mcg BID PO Last administered on 01/21/17 08:41; Admin Dose 24 MCG; Start 01/20/17 at 21:00 Al Hydrox/Mg Hydrox/Simethicone (Mag-Al Plus) 20 ml Q6 PRN PO NEEDED; Start 01/20/17 at 19:30 Magnesium Oxide (Mag-Ox 400) 400 mg BID PO Last administered on 01/21/17 08:40 ; Admin Dose 400 MG; Start 01/20/17 at 21:00 Metoprolol Tartrate (Lopressor) 25 mg BID PO Last administered on 01/21/17 08: 40; Admin Dose 25 MG; Start 01/20/17 at 21:00 Pantoprazole (Protonix Tab) 40 mg DAILY PO Last administered on 01/21/17 08:40 ; Admin Dose 40 MG; Start 01/21/17 at 09:00 Simethicone (Mylicon) 80 mg Q6H PO Last administered on 01/21/17 08:40; Admin Dose 80 MG; Start 01/20/17 at 19:30 Sucralfate (Carafate) 1 gm Q8H PO Last administered on 01/21/17 03:36; Admin Dose 1 GM; Start 01/20/17 at 19:30 Tamsulosin HCl (Flomax) 0.4 mg QHS PO Last administered on 01/20/17 22:18; Admin Dose 0.4 MG; Start 01/20/17 at 21:00 Trazodone HCl (Desyrel) 100 mg QHS PO Last administered on 01/20/17 22:20; Admin Dose 100 MG; Start 01/20/17 at 21:00 Miscellaneous Information 1 ea NOTE XX ; Start 01/20/17 at 20:00 Glucose (Glutose) 15 gm Q15M PRN PO DECREASED GLUCOSE; Start 01/20/17 at 20:00 Glucose (Glutose) 22.5 gm Q15M PRN PO DECREASED GLUCOSE; Start 01/20/17 at 20: 00 Dextrose (D50w Syringe) 25 ml Q15M PRN IV DECREASED GLUCOSE; Start 01/20/17 at 20:00 Dextrose (D50w Syringe) 50 ml Q15M PRN IV DECREASED GLUCOSE; Start 01/20/17 at 20:00 Glucagon (Glucagen) 1 mg Q15M PRN IM DECREASED GLUCOSE; Start 01/20/17 at 20:00 Glucose (Glutose) 15 gm Q15M PRN BUCCAL DECREASED GLUCOSE; Start 01/20/17 at 20 :00 Insulin Detemir (Levemir) 15 unit QHS SC ; Start 01/21/17 at 21:00 Calcium/Vitamin D (Oyster Shell/ Vit-D (500/200)) 1 tab DAILY PO ; Start at 09:00 Lactobacillus Acidophilus 1 each 1 each BID PO ; Start 01/21/17 at 21:00 Ceftriaxone Sodium (Rocephin) 50 ml @ 100 mls/hr Q24H IVPB ; Start 01/21/17 at 11:00 JENN KAPOOR Jan 21, 2017 10:07
[2017-01-21] MEDS ORDERED: CEFTRIAXONE 2 GM/50 ML (PMX) 50 ML IVPB SCH (11:00)
[2017-01-21] MEDS ORDERED: VITAMIN A & D 5 GM OINT PACKET TOP ONE (14:53)
--- NOTE | 2017-01-21 18:00 | PDOCDIS ---
Discharge Instructions CONDITION Patient Condition: Stable JENN KAPOOR Jan 21, 2017 18:00
--- NOTE | 2017-01-21 18:03 | DS ---
Date/Time of Note Date/Time of Note DATE: 01/21/17 TIME: 18:02 Discharge Summary Admission/Discharge Info Admit Date/Time Jan 20, 2017 at 13:28 Discharge Date/Time Discharge Diagnosis see below under "hospital course" Patient Condition: Stable Hx of Present Illness 71-year-old male past medical history of hypertension, CAD, depression, diabetes , and underlying psychiatric disorder presents with altered mental status. Please note the history and physical exam is limited secondary to the patient's mental status, and full review of systems cannot be obtained at this time.'s of the information is obtained from the ER documentation. Apparently per records 20 minutes prior to arrival the patient was at a [facility] where he fell to the ground suddenly. He was altered immediately and was brought in by ambulance. Sugar was 176. He is not responding to commands or painful stimuli at this time. Code stroke was initiated in the ER after patient had syncopal event and had altered mental status. However TPA was not recommended to be given by telemetry neurologist. Later today in the ER patient was experiencing severe agitation, was found to have the Otoscope wire wrapped around neck and face cyanotic. This was removed, and telemetry psychiatrist was also initiated, patient initially refused but then agreed to a second evaluation by the tele-psychiatrist who recommended Zyprexa after diagnosing him with psychotic disorder versus delirium, likely delirium. Patient was also found with acute renal insufficiency and UTI today. Hospital Course Assessment and plan: 71-year-old male with UTI and renal insufficiency, also with psychiatric disorder, prior history of hypertension, depression, diabetes. 1. UTI: WBC improved this morning, no fevers. -Continue IV antibiotics, follow up final culture results, Tylenol as needed pain fevers, 2. SHLOMO: Improved and resolved now, continue IV fluids 3. Psychiatric disorder: Diagnosed with psychotic disorder versus delirium, improved now -Continue Zyprexa 2.5 mg p.o. twice daily, Ativan as needed, monitor for signs of agitation 4. Hypertension: Hydralazine as needed 5. Diabetes: Sliding scale insulin, Levemir Dispo: Patient is now medically cleared to be transferred to psychiatric facility or under PET team care today Home Meds Reported Medications [Pancreaze Cap 4200U] No Conflict Check, 1 CAP PO BID 01/20/17 [Neutra-Phos Pac.] No Conflict Check, 2 PACKET PO BID TAKE 9-AM AND 5PM 01/20/17 [Neutra-Phos Pac.] No Conflict Check, 1 PACKET PO Q1PM 01/20/17 Cholecalciferol* (Vitamin D3*) 1,000 Unit Tablet, 1000 UNIT PO DAILY, TAB 01/20/17 Calcium Carbonate/Vitamin D3 (Calcium 500+D Tablet Chew) 1 Each Tab.chew, 1 EACH PO DAILY, TAB.CHEW 01/20/17 Buspirone Hcl* (Buspirone Hcl*) 5 Mg Tab, 5 MG PO BID, TAB 01/20/17 Lactobacillus Acidophilus* (Lactinex*) 1 Tab Chew, 1 TAB PO BID, TAB 01/20/17 Cran/Vitc/Mannose/Inulin/Brom (Uti-Stat Liquid) 3,875 Mg/30 Ml Liquid, 30 ML PO BID 01/20/17 Trazodone Hcl* (Trazodone Hcl*) 100 Mg Tablet, 100 MG PO QHS, #30 TAB 01/20/17 Metoprolol Tartrate* (Lopressor*) 25 Mg Tab, 25 MG PO BID, #60 TAB HOLD FOR SBP<110 HR<60 01/20/17 Atorvastatin Calcium (Atorvastatin Calcium) 10 Mg Tablet, 5 MG PO QHS, #30 TAB 01/20/17 Insulin Detemir (Levemir Flextouch) 100 Unit/1 Ml Insuln.pen, 20 UNIT SQ DAILY 01/20/17 Insulin Detemir (Levemir Flextouch) 100 Unit/1 Ml Insuln.pen, 15 UNIT SQ QHS 01/20/17 Sitagliptin* (Januvia*) 100 Mg Tablet, 100 MG PO QAM, #30 TAB 01/20/17 Loperamide Hcl* (Loperamide Hcl*) 2 Mg Cap, 2 MG PO Q6H Y for PRN, CAP 01/20/17 Bisacodyl* (Bisacodyl*) 10 Mg Supp, 10 MG NE Q24H Y for NEEDED, SUPP 01/20/17 Dipyridamole (Dipyridamole*) 25 Mg Tablet, 25 MG PO TID, TAB 01/20/17 Cranberry Extract (Cranberry) 425 Mg Capsule, 425 MG PO DAILY, CAP 01/20/17 Sucralfate* (Carafate*) 1 Gm Tab, 1 GM PO Q8H, TAB 01/20/17 Simethicone* (Mylicon*) 80 Mg Tab, 80 MG PO Q6H, TAB TAKE 1 OR 2 TABLETS NEEDED FOR GAS PAIN 01/20/17 Clopidogrel Bisulfate (Clopidogrel) 75 Mg Tablet, 75 MG PO DAILY, #30 TAB 01/20/17 Hydrocodone/Acetaminophen ([place] 10-325 Tablet) 1 Each Tablet, 1 EACH PO Q4H, TAB 01/20/17 Magaldrate/Simethicone* (Mylanta*) 355 Ml Susp, 20 ML PO Q6 Y for NEEDED, ML 01/20/17 Psyllium Husk-Aspartame (Metamucil Fiber Singles Packet) 3.4 Gm Powd.pack, 3.4 GM PO DAILY, PACKET 01/20/17 Melatonin (MELADOX) 3 Mg Tablet.er, 3 MG PO QHS, TAB 01/20/17 Magnesium Oxide* (Magnesium Oxide*) 400 Mg Tablet, 400 MG PO BID, TAB 01/20/17 Dicyclomine Hcl* (Bentyl*) 10 Mg Capsule, 10 MG PO Q6H, CAP 01/16/15 Clonidine Hcl* (Clonidine Hcl*) 0.1 Mg Tab, 0.1 MG PO BID Y for ELEVATED BLOOD PRESSURE, TAB NEEDED FOR SBP>160 01/16/15 Isosorbide Mononitrate* (Isosorbide Mononitrate*) 60 Mg Tab.er.24h, 60 MG PO DAILY, TAB 01/16/15 Benazepril Hcl* (Benazepril Hcl*) 20 Mg Tablet, 20 MG PO DAILY, TAB HOLD IF SBP<110 OR HR<60 01/16/15 Lubiprostone* (Amitiza*) 24 Mcg Capsule, 24 MCG PO BID, CAP 01/16/15 Tamsulosin Hcl* (Tamsulosin Hcl*) 0.4 Mg Cap.er.24h, 0.4 MG PO QHS 10/19/13 Pantoprazole (Protonix) 40 Mg Tabec, 40 MG PO DAILY 10/19/13 Famotidine* (Pepcid*) 20 Mg Tablet, 20 MG PO BID 10/15/12 Lorazepam (Ativan) 1 Mg Tablet, 0.25 MG PO Q4H Y for ANXIETY 10/23/12 Docusate Sodium* (Colace*) 100 Mg Capsule, 100 MG PO DAILY 03/27/12 Gabapentin* (Gabapentin*) 300 Mg Capsule, 300 MG PO TID 03/27/12 Discontinued Reported Medications Acetaminophen* (Tylenol*) 325 Mg Tablet, 650 MG PO Q6H Y for PAIN AND OR ELEVATED TEMP, TAB 01/16/15 Glucagon* (Glucagen*) 1 Mg Soln, 1 MG IM PRN Y for DECREASED GLUCOSE, VIAL 01/16/15 Magaldrate/Simethicone* (Mag-Al Plus Suspension*) 30 Ml Oral.susp, 10 ML PO Q6H Y for GASTROINTESTINAL UPSET, ML 01/16/15 Insulin Detemir* (Levemir*) 100 U/Ml Vial, 30 UNIT SC DAILY, VIAL DAILY AT BREAKFAST 01/16/15 Insulin Lispro (Humalog) 100 U/Ml Cartridge, 0 SC SLIDING SCALE ACHS, EA 01/16/15 Aspirin* (Aspirin* EC) 81 Mg Tablet.dr, 81 MG PO DAILY, TAB 01/16/15 Fentanyl Patch* (Fentanyl Patch*) 25 Mcg/Hr Transdermal Patch, 1 PATCH TD Q72H, PATCH 01/16/15 Nitroglycerin* (Nitrostat*) 0.4 Mg Tab.subl, 0.4 MG SL Q5MIN Y for CHEST PAIN, BOTTLE 01/16/15 Zolpidem Tartrate* (Ambien*) 5 Mg Tablet, 5 MG PO HS Y for INSOMNIA, TAB 01/16/15 Hydrocodone Bit-Acetaminophen* ([place]*) 5-325 Mg Tab, 1 TAB PO Q6 Y for SEVERE PAIN LEVEL 7-10, TAB 01/16/15 Methocarbamol* (Methocarbamol*) 500 Mg Tablet, 500 MG PO Q8 Y for MUSCLE SPASMS , TAB 01/16/15 Ibuprofen* (Ibuprofen*) 600 Mg Tablet, 600 MG PO Q6H Y for MODERATE PAIN LEVEL 4 -6, TAB 01/16/15 Hydroxyzine Hcl* (Hydroxyzine Hcl*) 25 Mg Tablet, 25 MG PO QID Y for ITCHING, TAB 01/16/15 Amlodipine Besylate* (Amlodipine Besylate*) 10 Mg Tablet, 10 MG PO DAILY, TAB HOLD IF SBP<110 01/16/15 Metformin* (Glucophage*) 500 Mg Tab, 500 MG PO WITH MEALS, TAB 01/16/15 Levothyroxine Sodium* (Levothyroxine Sodium*) 125 Mcg Tablet, 125 MCG PO AC BREAKFAST, TAB 01/16/15 Grrgcf-Waocpydv-Pazxazd* (Zenpep DR* 15,000) 15,000 L-51,000-82,000 Unit Capsule.dr, 1 CAP PO DAILY, CAP 01/16/15 Ranolazine* (Ranexa*) 500 Mg Tab.sr.12h, 500 MG PO Q12, TAB 01/16/15 Atorvastatin Calcium* (Atorvastatin Calcium*) 20 Mg Tablet, 20 MG PO DAILY 10/15/12 Polyethylene Glycol (Miralax) 17 Gm/Pkt Liq, 17 GM PO DAILY 03/27/12 Multivitamins* (Multivitamins*) 1 Tab Tablet, 1 TAB PO DAILY 06/03/11 Finasteride* (Proscar*) 5 Mg Tablet, 5 MG PO DAILY, MG 06/03/11 Discontinued Scripts Lactulose* (Lactulose*) 20 Gm/30 Ml Solution, 20 GM PO TID for CONSTIPATION, # 10 ML Prov:JENNI STEWART DO 01/16/15 Primary Care Provider Yousuf Floyd MD Time spent on discharge: > 30 minutes Pending Labs Laboratory Tests Test 01/21/17 06:37 01/21/17 08:44 01/21/17 10:31 01/21/17 12:47 White Blood Count 7.910^3/ul (4.8-10.8) Red Blood Count 4.5110^6/ul (4.70-6.10) Hemoglobin 13.9g/dl (14.0-18.0) Hematocrit 42.2% (42.0-52.0) Mean Corpuscular Volume 93.6fl (82.0-101.0) Mean Corpuscular Hemoglobin 30.8pg (29.0-33.0) Mean Corpuscular Hemoglobin Concent 32.9g/dl (32.0-37.0) Red Cell Distribution Width 12.9% (11.5-14.5) Platelet Count 07668^3/UL (140-415) Mean Platelet Volume 10.1fl (7.4-10.4) Neutrophils % 63.8% (39.0-77.0) Lymphocytes % 21.9% (15.0-51.0) Monocytes % 10.0% (0.0-11.0) Eosinophils % 3.4% (0.0-7.0) Basophils % 0.6% (0.0-2.0) Nucleated Red Blood Cells % 0.0/100WBC (0.0-0.0) Neutrophils # (Manual) 510^3/ul (1.7-7.5) Lymphocytes # 1.710^3/ul (0.8-2.9) Monocytes # 0.810^3/ul (0.3-0.9) Eosinophils # 0.310^3/ul (0.0-0.5) Basophils # 0.110^3/ul (0.0-0.1) Nucleated Red Blood Cells # 0.010^3/ul (0.0-0.0) Sodium Level 144mmol/L (135-144) Potassium Level 3.9mmol/L (3.5-5.1) Chloride Level 106mmol/L (97-110) Carbon Dioxide Level 25mmol/L (21-31) Anion Gap 17 (8-16) Blood Urea Nitrogen 22mg/dl (7-20) Creatinine 1.10mg/dl (0.61-1.24) Glucose Level 90mg/dl (70-220) Hemoglobin A1c 7.4% (0-5.9) Calcium Level 8.5mg/dl (8.4-10.2) Phosphorus Level 3.5mg/dl (2.5-4.9) Magnesium Level 2.2mg/dl (1.7-2.5) Triglycerides Level 160mg/dl (0-149) Cholesterol Level 91mg/dl (100-200) LDL Cholesterol, Calculated 33mg/dl HDL Cholesterol 26mg/dl (31-75) Cholesterol/HDL Ratio 3.5RATIO Thyroid Stimulating Hormone (TSH) 0.425MIU/L (0.465-4.680) Bedside Glucose 104mg/dL (70-220) 116mg/dL (70-220) 140mg/dL (70-220) JENN KAPOOR Jan 21, 2017 18:03
[2017-01-21] MEDS ORDERED: L ACIDOPHIL/B LACTIS/B LONGUM CAPSULE PO SCH (21:00)
[2017-01-22] MEDS ORDERED: NON-FORMULARY/PATIENT OWN MED (Cranberry Extract (Cranberry) 425 MG) PO SCH (09:00)
[2017-01-22] MEDS ORDERED: CALCIUM/VITAMIN D (500/200) TAB PO SCH (09:00)
== END 2017-01-21 20:42 | DRG 884 ==
LOC: E/R 08:55 → TEL 13:28
PROVIDERS: ADMIT Hospitalist; ATTEND Hospitalist
DX: F06.8 Other specified mental disorders due to known physiological condition (principal); J18.9 Pneumonia, unspecified organism; N17.9 Acute kidney failure, unspecified; F05 Delirium due to known physiological condition; G45.9 Transient cerebral ischemic attack, unspecified; N39.0 Urinary tract infection, site not specified; R10.84 Generalized abdominal pain; K59.00 Constipation, unspecified; T14.91 Suicide attempt; I10 Essential (primary) hypertension; I25.10 Atherosclerotic heart disease of native coronary artery without angina pectoris; E11.9 Type 2 diabetes mellitus without complications; F32.9 Major depressive disorder, single episode, unspecified; Z95.1 Presence of aortocoronary bypass graft; Z79.4 Long term (current) use of insulin
CPT/HCPCS: 36415; 70450; 70496; 70498; 71010; 80048; 80061; 80306; 80307; 81001; 82962; 83036; 83735; 84100; 84439; 84443; 84484; 85025; 85610; 85730; 87040; 87081; 87086; 92610; 93005; 96372; 96374; J0360; J0696; J1630; J1644; J1815; J2060; J2270; J7030; Q9967